=== PATIENT | female | born 1950 | race Caucasian/White ===

== ENCOUNTER 2023-02-24 15:37 | Day surgery (SDC) | payer MEDICARE, BC, SELFPAY ==
--- NOTE | 2023-02-24 | IR_ITS ---
APPROVED REPORT Patient Location: Emergent Script Developer: CLAUDIA Yu RT (R) PROCEDURES Left heart catheterization Left ventriculogram Selective coronary angiogram Drug-eluting stent deployment to the proximal mid LAD Separate procedure 30 minutes CPR ENDOTRACHEAL INTUBATION Placement of temporary transcutaneous pacemaker INDICATION Acute anterior ST elevation myocardial infarction, Cardiogenic shock, Acute respiratory failure Informed consent was obtained prior to the procedure. COMPLICATIONS None Estimated Blood Loss: Less than 10 ml TECHNIQUE One percent lidocaine used to anesthetize the right anterior aspect of the wrist. The right radial artery was accessed via the Seldinger technique. A 6 Romanian sheath was placed in the right radial artery. 150 mg magnesium sulfate, 800 mcg of nitroglycerin, 1mg Lidocaine and 5000 U Heparin were given through the arterial sheath. The papa catheter was also used to perform left heart catheterization, left ventriculogram and selective coronary angiogram. Therapeutic heparin was administered in the emergency department and the ACT was out of range at the end the diagnostic angiogram the catheter was placed on the left main artery followed by Choice PT extra-support wire being placed down the LAD. A 2 mm compliant balloon was used to predilate the stenosis followed by 2.5 mm compliant balloon. Because of the dense calcification a guide liner was required to advance the balloon. A 2.5 x 26 mm resolute frontier stent was deployed at 20 amy reducing the critical stenosis. An additional 2.75 x 12 mm resolute frontier stent was placed proximal to this yet still overlapping the stent deployed at 20 amy. JAVON 0 was present down the mid LAD at the beginning of the procedure with JAVON III flow at the end of the procedure. Intracoronary nitroglycerin was administered. At the end of the procedure the apparatus was removed the patient was transferred to the postop holding area in guarded yet stable condition for postoperative care We will patient was in recovery she experienced sudden onset asystole. Chest compressions were initiated as well as ACLS protocol. ROSC was established and epinephrine atropine and sodium bicarb were administered. A transcutaneous pacemaker was placed due to high degree AV block. Endotracheal intubation was then performed due to apnea and to protect the airway. Patient continued to lose circulation. After several rounds of chest compressions the code was eventually called at 5:17 PM. Family was at bedside when the code was code and the patient was pronounced ANGIOGRAPHIC RESULTS The left main artery Is calcified and has a distal 30% stenosis The left anterior descending artery Has an ostial 50% followed by a proximal 60 to 70% stenosis and then an occlusion at mid vessel. After stent placement there was inline flow to the mid LAD with diffuse multiple 80 and 90% stenoses throughout the entire LAD. The circumflex artery Is a dominant vessel and has an ostial proximal 70% followed by additional 50% followed by mid vessel concentric 80% stenosis with an additional 70% mid vessel stenosis and a 60 to 70% stenosis in the large second obtuse marginal artery. The right coronary artery Nondominant ostially occluded and fills via [id number] collaterals The ADAIR ventriculogram reveals Dilated ventricle anterior apical hypokinesis estimated ejection fraction 30% The left ventricular end-diastolic pressure 38 mmHg IMPRESSION Acute anterior ST elevation myocardial infarction with initial success at restoring flow which was subsequently complicated by asystole and acute respiratory failure Successful endotracheal intuba
--- NOTE | 2023-02-24 15:31 | ECG_ITS ---
APPROVED REPORT Exam: Resting ECG HR:91 bpm ECG Measurements Heart Rate 91 AXES UT 160 P 46 QRSd 138 QRS 11 QT 363 T 23 QTc 412 Conclusion SINUS RHYTHM RIGHT BUNDLE BRANCH BLOCK [120+ ms QRS DURATION, UPRIGHT V1, 40+ ms S IN I/aVL/V4/V5/V6] ST ELEVATION, CONSIDER SEPTAL INJURY [MARKED ST ELEVATION W/O NORMALLY INFLECTED T-WAVE IN V1/V2] ACUTE IA UNCONFIRMED REPORT Electronically signed by : Thomas Mills MD 02/24/2023 17:32:12
[2023-02-24 15:37] VITALS: BP 200/94; PULSE 78; RESP 17; TEMP 36.7; O2SAT 93; BMI 27.3
[2023-02-24 15:39] VITALS: BMI 27.3
--- NOTE | 2023-02-24 15:39 | PC.NURSE ---
pt undressed, placed into gown, shaved at bilateral groin sites and right wrist. Zoll pads placed on pt at this time
--- NOTE | 2023-02-24 15:39 | HMH.EDGENADL ---
Discharge Plan Disposition Patient Disposition: Admitted Clinical Impressions Clinical Impression: ST elevation (STEMI) myocardial infarction Discharge ED Provider: Nettie (ED)Aditya General Adult HPI General Stated complaint: chest pain Time Seen by Provider: 02/24/23 15:40 History of Present Illness HPI narrative: Patient is a 73-year-old female with a history of hypertension presenting with chest pain some nausea and low bit of back pain. She was at the of her and just buried him just a few hours prior to arrival developed severe chest discomfort. She denies any shortness of breath or diaphoresis associated with this. Related Data Allergies Allergy/AdvReac Type Severity Reaction Status Date / Time CLASS: 04:00 - ANTIHISTAMINE Allergy Unknown Uncoded 09/14/17 14:25 DRUGS Sulfonamide Allergy Unknown Uncoded 09/14/17 14:25 Tetanus Toxoid Allergy Unknown Uncoded 09/14/17 14:25 [facility] Disclaimer: The information contained in this section may have been updated after the patient was seen, as this information can be updated by other users. Social History Smoking Status: Never smoker alcohol intake: never current occupational status: other Travel in the last 8 weeks: None ROS Obtained: Yes All systems reviewed & no additional complaints except as documented Physical Exam General General appearance: alert Respiratory Respiratory exam: Present normal lung sounds bilaterally; Absent wheezes Cardiovascular Cardiovascular exam: Present regular rate; Absent tachycardia Neurological Exam Neurological exam: Present alert and oriented X3 Medical Decision Making Davis Inquiry Pt receiving controlled substance: No Orders (Tests/Meds): ED MEDICATIONS Generic Name Dose Route Start Last Admin Trade Name Freq PRN Reason Stop Dose Admin Aspirin 324 mg 02/24/23 15:41 Aspirin 81mg Chewable Tablet PO 02/24/23 15:42 ONCE ONE Heparin Sodium (Porcine) 6,000 unit 02/24/23 15:41 Heparin 1,000 Units/Ml 10ml Vial (Metal Crafts Teacher) IV 02/24/23 15:42 ONCE ONE Ticagrelor 180 mg 02/24/23 15:41 Ticagrelor 90mg Tablet PO 02/24/23 15:42 ONCE ONE Discontinued Medications Generic Name Dose Route Start Last Admin Trade Name Freq PRN Reason Stop Dose Admin Heparin Sodium (Porcine) 6,000 unit 02/24/23 15:39 Heparin 1,000 Units/Ml 10ml Vial (Metal Crafts Teacher) IV 02/24/23 15:40 ONCE ONE Ticagrelor 180 mg 02/24/23 15:39 Ticagrelor 90mg Tablet PO 02/24/23 15:40 ONCE ONE Medical Decision Narrative: 73-year-old female presenting with an anterior precordial STEMI with lateral and inferior reciprocal changes. Patient has ST elevations in V1 and V2 4 to 5 mm with reciprocal depressions in lead II and aVF there is also some lateral precordial ST depressions there is additionally interventricular conduction delay consistent with right bundle branch block there are some Q wave formations in the anterior precordial leads as well I discussed this case with Dr. Boateng we will give aspirin Brilinta heparin bolus pads been placed on the patient patient was consented to go to the Metal [employer]s [employer] and Dr. Boateng and team are coming in for intervention. It is possible that this is Takotsubo's given the patient recently just buried her just a few hours ago. Patient was admitted in critical condition. Critical Care Time Critical Care Time Critical Care Time: Yes Total Critical Care Time: 20 Attestation: On , the high probability of a clinically significant, sudden or life threatening deterioration of the following system(s) required my full and direct attention, intervention and personal management. The time I documented below is in addition to time spent performing reported procedures but includes the following listed in this critical care notation.
--- NOTE | 2023-02-24 15:42 | PC.NURSE ---
cath consent signed by pt at this time
--- NOTE | 2023-02-24 15:48 | PC.NURSE ---
Addendum entered by Jayne Higginbotham RN 02/24/23 15:49: called at 1533 Original Note: Paper Production Engineer called for STEMI Alert, offset plate preparation supervisor called.
--- NOTE | 2023-02-24 15:57 | PC.NURSE ---
pt reports persistent nausea still and that she feels hot. pt given alcohol swabs so sniff at this time for nausea and and a standing fan is placed at bedside.
--- NOTE | 2023-02-24 16:00 | PC.NURSE ---
pt going to the cathlab at this time.
--- NOTE | 2023-02-24 16:01 | PC.NURSE ---
pt transported to the [facility] via stretcher on the Zoll by this nurse and ESPERANZA Garza
[2023-02-24 16:11] LABS: Basophils % 0.5 % (0.1-2.0); Eosinophils # 0.2 K/mm3 (0.0-0.4); Eosinophils % 2.4 % (0.1-12.0); Hematocrit 41.1 % (37.0-47.0); Hemoglobin 13.6 g/dL (12.2-16.2); Lymphocytes # 1.9 K/mm3 (0.7-4.5); Lymphocytes % 23.5 % (10-50); Mean Corpuscular Hemoglobin 29.7 pg (27.0-31.2); Mean Corpuscular Volume 89.9 fl (81-99); Mean Platelet Volume 9.3 fl (7.4-10.4); Monocytes # 0.5 K/mm3 (0.1-1.0); Monocytes % 6.3 % (1.7-9.3); Neutrophils # 5.5 K/mm3 (1.8-7.8); Neutrophils % 67.4 % (37.0-80.0); Platelet Count 298 K/mm3 (142-424); Red Blood Count 4.57 M/mm3 (4.20-5.40); White Blood Count 8.1 K/mm3 (4.8-10.8)
[2023-02-24 16:21] LABS: Chloride 106 mmol/L (98-107); Potassium 3.3 mmoL/L (3.5-5.1); Sodium 142 mmol/L (136-145)
[2023-02-24 16:25] LABS: Anion Gap 13.3 mEq/L (5-15); Blood Urea Nitrogen 16 mg/dl (7-17); Calcium 9.4 mg/dl (8.4-10.2); Carbon Dioxide 26 mmol/L (22.0-30.0); Creatinine Clearance Estimated 49 mL/min (50-200); Estimated Glomerular Filt Rate 70 ml/min (>60); GFR (African American) 85 ML/MIN (>60); Glucose 186 mg/dl (74-100)
[2023-02-24 16:27] VITALS: BP 159/81; PULSE 82; PULSE 86; RESP 17; TEMP 37; O2SAT 98
[2023-02-24 16:37] LABS: Troponin I 0.04 ng/ml (0.00-0.034)
[2023-02-24 16:50] VITALS: BP 97/58; PULSE 80; PULSE 90; RESP 16; O2SAT 89
[2023-02-24 16:55] VITALS: BP 78/59; PULSE 107; RESP 8; O2SAT 62
[2023-02-24 17:00] VITALS: BP 70/33; PULSE 63
[2023-02-24 17:27] VITALS: BP 70/33; BP 78/59; BP 97/58
[2023-02-24 17:39] LABS: CATHL Activated Clotting Time > 400 SEC (74-125)
--- NOTE | 2023-02-24 17:44 | SUR.PHASEII ---
Spoke with MONAE: Renee Case # [id number] Awaiting Tapper Shank to arrive; MONAE wants to speak with MONAE
--- NOTE | 2023-02-24 17:47 | SUR.PHASEII ---
Pt transported from procedure room in stable condition, hooked up to property assessment monitor and vital sign machine, pt slightly drowsy but oriented and requesting something to drink. O2 sat in the 80s on RA, simple mask applied at 15L, pt sat up to take a drink of water, pt began to hernandez down to 30s and became unresponsive, pt immediately placed in supine position and CPR started 1652- CPR started 1653- EPI 1 amp 1654- pulse check, EPI 1 amp given 1655- EPI 1 amp 1656- pulse check, EPI 1 amp, Bicarb 1 amp 1702- EPI 1 amp 1703- external pacing via Zoll initiated 1704- Atropine 1 amp 1705- agonal breathing, pt intubated per Dr. Boateng; breath sounds checked per Dr. Sewell, ET tube pulled back slightly, good breath sounds bilaterally, CPR resumed 1709- pulse check, CPR resumed 1710- EPI 1 amp 1711- pulse check, construction technology instructor at bedside to perform echo, no function seen 1717- CPR stopped per family/MD request; pt remained on external pacer for family to come in to see patient See code flow sheet report/MAR
--- NOTE | 2023-02-24 17:53 | SUR.PHASEII ---
Comfort Becker RN removed pt's jewlery while Nicolasa Persaud was in the room.
--- NOTE | 2023-02-24 18:06 | SUR.PHASEII ---
Senior Javascript Engineer here
--- NOTE | 2023-02-24 18:35 | SUR.PHASEII ---
Alta the Hydraulic Jack Operator present to take patient's body to [facility]. Renee walker [facility] [place] notified and aware, pt family in waiting room also made aware as well
== END 2023-02-24 18:46 | disposition expired ==
LOC: ER 16:21 → CATHLAB 16:26 → 2ND 16:34 → CATHLAB 18:43
PROVIDERS: Ophthalmology; Emergency Provider Emergency Medicine; Visit Provider Internal Medicine
DX: I21.09 ST elevation (STEMI) myocardial infarction involving other coronary artery of anterior wall (principal); R57.0 Cardiogenic shock; J96.00 Acute respiratory failure, unspecified whether with hypoxia or hypercapnia; I10 Essential (primary) hypertension; I25.10 Atherosclerotic heart disease of native coronary artery without angina pectoris
CPT/HCPCS: 33210; 80048; 84484; 85025; 85347; 92928; 93005; 93458; 99152; 99153; C1725; C1769; C1876; C9600; J1644; J2405; Q9967